=== PATIENT | male | born 1950 | race Caucasian/White ===

== ENCOUNTER 2018-03-16 15:52 | Emergency (ER) | payer MEDICARE ==
[~2018-03-16] VITALS: Ht 175.3 cm; Wt 113.4 kg
[~2018-03-16 15:52] MED LIST: ALBIPROI INH; ALBU90OI INH; AMLO10 PO; ASPI325 PO; ASPI81CH PO; Aspir 8181 MG PO; CARV25 PO; CHOL10002 PO; CLON.1 PO; Coreg PO; DICL25ER PO; DICL75ER PO; EZET10 PO; FURO20 PO; HYDACE5 PO; HYDCHL25 PO; INDO50 PO; Indomethacin50 MG PO; LISHYD2012 PO; LISI20 PO; MULTIVITAMIN PO; MULVITMIND PO; Micro-K10 MEQ PO; Nasonex17 GM; OMEP20ER PO; OMEPRAZOLE MAGN20 MG PO; OXYACE5T PO; PARO10 PO; PARO20 PO; PARO30 PO; PENVK250 PO; POTA10T PO; POTCHL10ER PO; PRAV40 PO; PROACE100 PO; Prednisone20 MG PO; RANI150 PO; SIMV10 PO; SIMV40 PO; Simvastatin20 MG PO; ZESTRIL40 MG PO; [UNRECOGNIZED DRUG - OTHER] PO
== END 2018-03-16 17:20 | disposition home or self-care (01) ==
LOC: ER 15:52
DX: S81.011A Laceration without foreign body, right knee, initial encounter (principal); I11.0 Hypertensive heart disease with heart failure; I50.9 Heart failure, unspecified; J44.9 Chronic obstructive pulmonary disease, unspecified; Z79.899 Other long term (current) drug therapy; Z79.82 Long term (current) use of aspirin; Z79.51 Long term (current) use of inhaled steroids; Z79.52 Long term (current) use of systemic steroids; W01.0XXA Fall on same level from slipping, tripping and stumbling without subsequent striking against object, initial encounter
CPT/HCPCS: 12032; 73560-RT; 99283-25

== ENCOUNTER → 2018-12-05 | Outpatient (CLI) | payer MEDICARE | LOC: LAB SHORT 11:34 → LAB 11:34 | DX: M71.161 Other infective bursitis, right knee (principal) | CPT/HCPCS: 87070; 87075; 87205 ==

== ENCOUNTER → 2018-12-08 | Outpatient (CLI) | payer MEDICARE | END | disposition home or self-care (01) | LOC: LAB 14:16 → LAB SHORT 14:16 | DX: M71.161 Other infective bursitis, right knee (principal) | CPT/HCPCS: 87070; 87075; 87205 ==

== ENCOUNTER → 2019-02-01 | Outpatient (CLI) | payer MEDICARE ==
[~2019-02-01] MED LIST changes: +Amlodipine Besy10 MG PO; +Flovent 220 Ora12 GM INH; +PAXIL40 MG PO; +Seroquel Xr50 MG PO
== END | disposition home or self-care (01) ==
LOC: LAB 14:22 → LAB SHORT 14:22
DX: Z51.89 Encounter for other specified aftercare (principal); M71.161 Other infective bursitis, right knee
CPT/HCPCS: 87070; 87075; 87205

== ENCOUNTER → 2019-03-12 | Outpatient (CLI) | payer MEDICARE, OTHER | END | disposition home or self-care (01) | LOC: LAB 09:50 → LAB SHORT 09:50 | DX: T81.33XA Disruption of traumatic injury wound repair, initial encounter (principal); T75.89XS Other specified effects of external causes, sequela | CPT/HCPCS: 87070; 87075; 87077; 87186; 87205 ==

== ENCOUNTER 2019-04-09 10:42 | Day surgery (SDC) | payer MEDICARE ==
[~2019-04-09] VITALS: Ht 175.3 cm; Wt 117.7 kg
== END 2019-04-09 13:27 | disposition home or self-care (01) ==
LOC: ORSCSDS 10:42
PROVIDERS: Orthopaedic Surgery
PROC: 0MBN0ZZ Excision of Right Knee Bursa and Ligament, Open Approach (ICD-10-PCS; principal; 2019-04-09 12:00)
PROC: 0MTN0ZZ Resection of Right Knee Bursa and Ligament, Open Approach (ICD-10-PCS; principal; 2019-04-09 12:00)
DX: M70.51 Other bursitis of knee, right knee (principal); I10 Essential (primary) hypertension; J44.9 Chronic obstructive pulmonary disease, unspecified; E11.9 Type 2 diabetes mellitus without complications; E66.01 Morbid (severe) obesity due to excess calories; Z68.38 Body mass index [BMI] 38.0-38.9, adult; Z79.899 Other long term (current) drug therapy; Z79.82 Long term (current) use of aspirin
CPT/HCPCS: 82947; 87071; 87075; 87205; J0171; J0690; J1100; J2250; J2405; J2704; J3010; J7120

== ENCOUNTER 2019-05-14 11:42 | Emergency (ER) | payer MEDICARE ==
[~2019-05-14] VITALS: Ht 175.3 cm; Wt 117.9 kg
[2019-05-14] MEDS ORDERED: CEPH500 PO (13:22)
== END 2019-05-14 13:50 | disposition home or self-care (01) ==
LOC: ER 11:42
DX: S30.851A Superficial foreign body of abdominal wall, initial encounter (principal); L03.311 Cellulitis of abdominal wall; J44.9 Chronic obstructive pulmonary disease, unspecified; I11.0 Hypertensive heart disease with heart failure; I50.9 Heart failure, unspecified; I25.2 Old myocardial infarction; Z79.899 Other long term (current) drug therapy; Z79.82 Long term (current) use of aspirin; W45.8XXA Other foreign body or object entering through skin, initial encounter
CPT/HCPCS: 76705; 90471; 90714; 99283-25

== ENCOUNTER 2019-05-24 07:51 | Day surgery (SDC) | payer MEDICARE ==
[~2019-05-24 07:51] MED LIST changes: +CEPH500 PO
== END 2019-05-24 22:41 | disposition home or self-care (01) ==
LOC: WOUND 07:51
DX: E11.622 Type 2 diabetes mellitus with other skin ulcer (principal); L97.815 Non-pressure chronic ulcer of other part of right lower leg with muscle involvement without evidence of necrosis; E78.5 Hyperlipidemia, unspecified; J44.9 Chronic obstructive pulmonary disease, unspecified; E11.22 Type 2 diabetes mellitus with diabetic chronic kidney disease; I13.0 Hypertensive heart and chronic kidney disease with heart failure and stage 1 through stage 4 chronic kidney disease, or unspecified chronic kidney disease; N18.9 Chronic kidney disease, unspecified; I50.9 Heart failure, unspecified; E66.9 Obesity, unspecified; I25.10 Atherosclerotic heart disease of native coronary artery without angina pectoris; Z95.5 Presence of coronary angioplasty implant and graft; Z68.38 Body mass index [BMI] 38.0-38.9, adult; Z79.899 Other long term (current) drug therapy; Z79.82 Long term (current) use of aspirin
CPT/HCPCS: G0463

== ENCOUNTER 2019-06-01 00:20 | Day surgery (SDC) | payer MEDICARE, OTHER | END 2019-06-01 22:41 | disposition home or self-care (01) | LOC: WOUND 00:20 | DX: S81.001A Unspecified open wound, right knee, initial encounter (principal); J44.9 Chronic obstructive pulmonary disease, unspecified; I13.0 Hypertensive heart and chronic kidney disease with heart failure and stage 1 through stage 4 chronic kidney disease, or unspecified chronic kidney disease; N18.9 Chronic kidney disease, unspecified; I50.9 Heart failure, unspecified; E78.5 Hyperlipidemia, unspecified; E66.9 Obesity, unspecified; I25.10 Atherosclerotic heart disease of native coronary artery without angina pectoris; Z95.5 Presence of coronary angioplasty implant and graft; Z68.38 Body mass index [BMI] 38.0-38.9, adult; Z79.899 Other long term (current) drug therapy; Z79.82 Long term (current) use of aspirin ==

== ENCOUNTER 2019-06-04 13:30 | Day surgery (SDC) | payer MEDICARE, OTHER | END 2019-06-04 22:49 | disposition home or self-care (01) | LOC: WOUND 13:30 | DX: S81.001D Unspecified open wound, right knee, subsequent encounter (principal); I25.10 Atherosclerotic heart disease of native coronary artery without angina pectoris; I13.0 Hypertensive heart and chronic kidney disease with heart failure and stage 1 through stage 4 chronic kidney disease, or unspecified chronic kidney disease; I50.9 Heart failure, unspecified; N18.9 Chronic kidney disease, unspecified; E78.5 Hyperlipidemia, unspecified; J44.9 Chronic obstructive pulmonary disease, unspecified; E66.9 Obesity, unspecified; Z95.5 Presence of coronary angioplasty implant and graft; Z68.38 Body mass index [BMI] 38.0-38.9, adult; Z79.82 Long term (current) use of aspirin; Z79.899 Other long term (current) drug therapy; Z96.651 Presence of right artificial knee joint ==

== ENCOUNTER 2019-06-07 16:17 | Day surgery (SDC) | payer MEDICARE | END 2019-06-07 23:10 | disposition home or self-care (01) | LOC: WOUND 16:17 | DX: L97.815 Non-pressure chronic ulcer of other part of right lower leg with muscle involvement without evidence of necrosis (principal); I13.0 Hypertensive heart and chronic kidney disease with heart failure and stage 1 through stage 4 chronic kidney disease, or unspecified chronic kidney disease; I50.9 Heart failure, unspecified; N18.9 Chronic kidney disease, unspecified; E78.5 Hyperlipidemia, unspecified; J44.9 Chronic obstructive pulmonary disease, unspecified; E66.9 Obesity, unspecified; I25.10 Atherosclerotic heart disease of native coronary artery without angina pectoris; Z95.5 Presence of coronary angioplasty implant and graft; Z68.38 Body mass index [BMI] 38.0-38.9, adult; Z79.82 Long term (current) use of aspirin; Z79.899 Other long term (current) drug therapy ==

== ENCOUNTER 2019-06-09 00:17 | Day surgery (SDC) | payer MEDICARE | END 2019-06-09 22:42 | disposition home or self-care (01) | LOC: WOUND 00:17 | DX: S81.001D Unspecified open wound, right knee, subsequent encounter (principal); I13.0 Hypertensive heart and chronic kidney disease with heart failure and stage 1 through stage 4 chronic kidney disease, or unspecified chronic kidney disease; N18.9 Chronic kidney disease, unspecified; I50.9 Heart failure, unspecified; J44.9 Chronic obstructive pulmonary disease, unspecified; E78.5 Hyperlipidemia, unspecified; I25.10 Atherosclerotic heart disease of native coronary artery without angina pectoris; Z95.5 Presence of coronary angioplasty implant and graft; Z98.890 Other specified postprocedural states ==

== ENCOUNTER 2019-06-16 09:35 | Day surgery (SDC) | payer MEDICARE, OTHER | END 2019-06-16 23:01 | disposition home or self-care (01) | LOC: WOUND 09:35 | DX: T81.89XA Other complications of procedures, not elsewhere classified, initial encounter (principal); I96 Gangrene, not elsewhere classified; I13.0 Hypertensive heart and chronic kidney disease with heart failure and stage 1 through stage 4 chronic kidney disease, or unspecified chronic kidney disease; N18.9 Chronic kidney disease, unspecified; I50.9 Heart failure, unspecified; I25.10 Atherosclerotic heart disease of native coronary artery without angina pectoris; E78.5 Hyperlipidemia, unspecified; J44.9 Chronic obstructive pulmonary disease, unspecified; E66.9 Obesity, unspecified; Z68.38 Body mass index [BMI] 38.0-38.9, adult; Z79.82 Long term (current) use of aspirin; Z79.1 Long term (current) use of non-steroidal anti-inflammatories (NSAID); Z79.51 Long term (current) use of inhaled steroids; Z79.899 Other long term (current) drug therapy; Z96.652 Presence of left artificial knee joint; Z95.5 Presence of coronary angioplasty implant and graft; Y83.8 Other surgical procedures as the cause of abnormal reaction of the patient, or of later complication, without mention of misadventure at the time of the procedure | CPT/HCPCS: Q4196 ==

== ENCOUNTER 2019-06-23 09:50 | Day surgery (SDC) | payer MEDICARE, OTHER | END 2019-06-23 23:49 | disposition home or self-care (01) | LOC: WOUND 09:50 | DX: L97.815 Non-pressure chronic ulcer of other part of right lower leg with muscle involvement without evidence of necrosis (principal); I13.0 Hypertensive heart and chronic kidney disease with heart failure and stage 1 through stage 4 chronic kidney disease, or unspecified chronic kidney disease; I50.9 Heart failure, unspecified; N18.9 Chronic kidney disease, unspecified; J44.9 Chronic obstructive pulmonary disease, unspecified; E78.5 Hyperlipidemia, unspecified; I25.10 Atherosclerotic heart disease of native coronary artery without angina pectoris; E66.9 Obesity, unspecified; Z95.5 Presence of coronary angioplasty implant and graft; Z68.38 Body mass index [BMI] 38.0-38.9, adult; Z79.82 Long term (current) use of aspirin; Z79.899 Other long term (current) drug therapy | CPT/HCPCS: Q4196 ==

== ENCOUNTER 2019-06-30 09:45 | Day surgery (SDC) | payer MEDICARE, OTHER | END 2019-06-30 22:47 | disposition home or self-care (01) | LOC: WOUND 09:45 | DX: T81.89XA Other complications of procedures, not elsewhere classified, initial encounter (principal); I96 Gangrene, not elsewhere classified; I13.0 Hypertensive heart and chronic kidney disease with heart failure and stage 1 through stage 4 chronic kidney disease, or unspecified chronic kidney disease; N18.9 Chronic kidney disease, unspecified; I50.9 Heart failure, unspecified; I25.10 Atherosclerotic heart disease of native coronary artery without angina pectoris; J44.9 Chronic obstructive pulmonary disease, unspecified; E78.5 Hyperlipidemia, unspecified; E66.9 Obesity, unspecified; Z68.38 Body mass index [BMI] 38.0-38.9, adult; Z79.51 Long term (current) use of inhaled steroids; Z79.82 Long term (current) use of aspirin; Z79.899 Other long term (current) drug therapy; Z95.5 Presence of coronary angioplasty implant and graft; Y83.1 Surgical operation with implant of artificial internal device as the cause of abnormal reaction of the patient, or of later complication, without mention of misadventure at the time of the procedure | CPT/HCPCS: G0463; Q4196 ==

== ENCOUNTER 2019-07-06 10:15 | Day surgery (SDC) | payer MEDICARE, OTHER | END 2019-07-06 22:47 | disposition home or self-care (01) | LOC: WOUND 10:15 | DX: T81.89XA Other complications of procedures, not elsewhere classified, initial encounter (principal); L97.812 Non-pressure chronic ulcer of other part of right lower leg with fat layer exposed; I13.0 Hypertensive heart and chronic kidney disease with heart failure and stage 1 through stage 4 chronic kidney disease, or unspecified chronic kidney disease; I50.9 Heart failure, unspecified; N18.9 Chronic kidney disease, unspecified; E78.5 Hyperlipidemia, unspecified; J44.9 Chronic obstructive pulmonary disease, unspecified; E66.9 Obesity, unspecified; I25.10 Atherosclerotic heart disease of native coronary artery without angina pectoris; Z95.5 Presence of coronary angioplasty implant and graft; Z68.38 Body mass index [BMI] 38.0-38.9, adult | CPT/HCPCS: Q4196 ==

== ENCOUNTER 2019-07-13 13:58 | Day surgery (SDC) | payer MEDICARE, OTHER | END 2019-07-13 22:33 | disposition home or self-care (01) | LOC: WOUND 13:58 | DX: T81.89XA Other complications of procedures, not elsewhere classified, initial encounter (principal); I96 Gangrene, not elsewhere classified; I13.0 Hypertensive heart and chronic kidney disease with heart failure and stage 1 through stage 4 chronic kidney disease, or unspecified chronic kidney disease; N18.9 Chronic kidney disease, unspecified; I50.9 Heart failure, unspecified; I25.10 Atherosclerotic heart disease of native coronary artery without angina pectoris; E78.5 Hyperlipidemia, unspecified; J32.9 Chronic sinusitis, unspecified; J44.9 Chronic obstructive pulmonary disease, unspecified; E66.9 Obesity, unspecified; Z68.38 Body mass index [BMI] 38.0-38.9, adult; Z95.5 Presence of coronary angioplasty implant and graft; Z96.652 Presence of left artificial knee joint; Y83.8 Other surgical procedures as the cause of abnormal reaction of the patient, or of later complication, without mention of misadventure at the time of the procedure | CPT/HCPCS: Q4196 ==

== ENCOUNTER 2019-07-21 09:43 | Day surgery (SDC) | payer MEDICARE, OTHER | END 2019-07-21 22:47 | disposition home or self-care (01) | LOC: WOUND 09:43 | DX: T81.89XA Other complications of procedures, not elsewhere classified, initial encounter (principal); L97.813 Non-pressure chronic ulcer of other part of right lower leg with necrosis of muscle; I25.10 Atherosclerotic heart disease of native coronary artery without angina pectoris; I13.0 Hypertensive heart and chronic kidney disease with heart failure and stage 1 through stage 4 chronic kidney disease, or unspecified chronic kidney disease; N18.9 Chronic kidney disease, unspecified; I50.9 Heart failure, unspecified; J44.9 Chronic obstructive pulmonary disease, unspecified; E78.5 Hyperlipidemia, unspecified; J32.9 Chronic sinusitis, unspecified; E66.9 Obesity, unspecified; Z68.38 Body mass index [BMI] 38.0-38.9, adult; Z95.5 Presence of coronary angioplasty implant and graft; Z96.652 Presence of left artificial knee joint; Z79.82 Long term (current) use of aspirin; Z79.51 Long term (current) use of inhaled steroids; Z79.899 Other long term (current) drug therapy; Y83.8 Other surgical procedures as the cause of abnormal reaction of the patient, or of later complication, without mention of misadventure at the time of the procedure | CPT/HCPCS: Q4196 ==

== ENCOUNTER 2019-07-28 00:32 | Day surgery (SDC) | payer MEDICARE, OTHER | END 2019-07-28 22:46 | disposition home or self-care (01) | LOC: WOUND 00:32 | DX: L97.815 Non-pressure chronic ulcer of other part of right lower leg with muscle involvement without evidence of necrosis (principal); I13.0 Hypertensive heart and chronic kidney disease with heart failure and stage 1 through stage 4 chronic kidney disease, or unspecified chronic kidney disease; I50.9 Heart failure, unspecified; J44.9 Chronic obstructive pulmonary disease, unspecified; E66.9 Obesity, unspecified; N18.9 Chronic kidney disease, unspecified; E78.5 Hyperlipidemia, unspecified; I25.10 Atherosclerotic heart disease of native coronary artery without angina pectoris; Z95.5 Presence of coronary angioplasty implant and graft; Z68.38 Body mass index [BMI] 38.0-38.9, adult; Z79.82 Long term (current) use of aspirin; Z79.899 Other long term (current) drug therapy | CPT/HCPCS: G0463 ==

== ENCOUNTER 2019-08-04 00:26 | Day surgery (SDC) | payer MEDICARE, OTHER | END 2019-08-04 22:33 | disposition home or self-care (01) | LOC: WOUND 00:26 | DX: L97.815 Non-pressure chronic ulcer of other part of right lower leg with muscle involvement without evidence of necrosis (principal); I13.0 Hypertensive heart and chronic kidney disease with heart failure and stage 1 through stage 4 chronic kidney disease, or unspecified chronic kidney disease; I50.9 Heart failure, unspecified; N18.9 Chronic kidney disease, unspecified; E78.5 Hyperlipidemia, unspecified; E66.9 Obesity, unspecified; I25.10 Atherosclerotic heart disease of native coronary artery without angina pectoris; J44.9 Chronic obstructive pulmonary disease, unspecified; Z95.5 Presence of coronary angioplasty implant and graft; Z68.38 Body mass index [BMI] 38.0-38.9, adult; Z79.82 Long term (current) use of aspirin; Z79.899 Other long term (current) drug therapy ==

== ENCOUNTER 2019-08-11 00:15 | Day surgery (SDC) | payer MEDICARE, OTHER | END 2019-08-11 22:54 | disposition home or self-care (01) | LOC: WOUND 00:15 | DX: L97.815 Non-pressure chronic ulcer of other part of right lower leg with muscle involvement without evidence of necrosis (principal); I13.0 Hypertensive heart and chronic kidney disease with heart failure and stage 1 through stage 4 chronic kidney disease, or unspecified chronic kidney disease; N18.9 Chronic kidney disease, unspecified; I50.9 Heart failure, unspecified; J44.9 Chronic obstructive pulmonary disease, unspecified; E78.5 Hyperlipidemia, unspecified; I25.10 Atherosclerotic heart disease of native coronary artery without angina pectoris; Z95.5 Presence of coronary angioplasty implant and graft; Z68.38 Body mass index [BMI] 38.0-38.9, adult; Z79.899 Other long term (current) drug therapy; Z79.82 Long term (current) use of aspirin ==

== ENCOUNTER 2019-08-18 00:14 | Day surgery (SDC) | payer MEDICARE, OTHER | END 2019-08-18 23:07 | disposition home or self-care (01) | LOC: WOUND 00:14 | DX: L97.815 Non-pressure chronic ulcer of other part of right lower leg with muscle involvement without evidence of necrosis (principal); I13.0 Hypertensive heart and chronic kidney disease with heart failure and stage 1 through stage 4 chronic kidney disease, or unspecified chronic kidney disease; I50.9 Heart failure, unspecified; N18.9 Chronic kidney disease, unspecified; E78.5 Hyperlipidemia, unspecified; J44.9 Chronic obstructive pulmonary disease, unspecified; E66.9 Obesity, unspecified; I25.10 Atherosclerotic heart disease of native coronary artery without angina pectoris; Z95.5 Presence of coronary angioplasty implant and graft; Z68.38 Body mass index [BMI] 38.0-38.9, adult; Z79.899 Other long term (current) drug therapy; Z79.82 Long term (current) use of aspirin | CPT/HCPCS: G0463 ==

== ENCOUNTER 2019-08-25 00:15 | Day surgery (SDC) | payer MEDICARE, OTHER | END 2019-08-25 22:55 | disposition home or self-care (01) | LOC: WOUND 00:15 | DX: L97.815 Non-pressure chronic ulcer of other part of right lower leg with muscle involvement without evidence of necrosis (principal); I13.0 Hypertensive heart and chronic kidney disease with heart failure and stage 1 through stage 4 chronic kidney disease, or unspecified chronic kidney disease; N18.9 Chronic kidney disease, unspecified; I50.9 Heart failure, unspecified; J44.9 Chronic obstructive pulmonary disease, unspecified; E78.5 Hyperlipidemia, unspecified; I25.10 Atherosclerotic heart disease of native coronary artery without angina pectoris; Z95.5 Presence of coronary angioplasty implant and graft; Z79.899 Other long term (current) drug therapy; Z79.82 Long term (current) use of aspirin | CPT/HCPCS: G0463 ==

== ENCOUNTER → 2020-06-14 | Outpatient (CLI) | payer MEDICARE ==
[2020-06-14 10:13] LABS: Anion Gap 6 mmol/L (6-16); Blood Urea Nitrogen 14 mg/dL (8-24); Bun/Creatinine Ratio 16.8 (12.0-20.0); CO2, Blood 27 mmol/L (21-32); Calcium, Blood 8.9 mg/dL (8.5-10.1); Chloride, Blood 106 mmol/L (98-108); Creatinine, Blood 0.83 mg/dL (0.60-1.20); Glomerular Filtration Rate >60 (60-); Glucose, Blood 121 mg/dL (70-99); Potassium, Blood 3.7 mmol/L (3.5-5.5); Sodium, Blood 139 mmol/L (136-145)
== END | disposition home or self-care (01) ==
LOC: LAB SHORT 09:44 → PLD 09:44
PROVIDERS: Physician Assistant
DX: I71.2 Thoracic aortic aneurysm, without rupture (principal)
CPT/HCPCS: 80048

== ENCOUNTER → 2020-06-27 | Outpatient (CLI) | payer MEDICARE, SELFPAY | END | disposition home or self-care (01) | LOC: PLD 11:47 → LAB SHORT 11:47 | DX: D23.61 Other benign neoplasm of skin of right upper limb, including shoulder (principal); L72.9 Follicular cyst of the skin and subcutaneous tissue, unspecified | CPT/HCPCS: 88305 ==

== ENCOUNTER → 2021-02-14 | Outpatient (CLI) | payer MEDICARE | LOC: LAB SHORT 12:38 → LAB 12:38 | DX: D48.5 Neoplasm of uncertain behavior of skin (principal); D23.39 Other benign neoplasm of skin of other parts of face; L57.0 Actinic keratosis | CPT/HCPCS: 88305 ==

== ENCOUNTER → 2021-08-27 | Outpatient (CLI) | payer OTHER, MEDICARE | END | disposition home or self-care (01) | LOC: LAB SHORT 12:12 → LAB 12:12 | DX: D36.14 Benign neoplasm of peripheral nerves and autonomic nervous system of thorax (principal); L28.1 Prurigo nodularis | CPT/HCPCS: 88305; 88312 ==

== ENCOUNTER → 2022-02-19 | Outpatient (CLI) | payer OTHER | END | disposition home or self-care (01) | LOC: PLD 11:27 | DX: D48.5 Neoplasm of uncertain behavior of skin (principal) ==

== ENCOUNTER → 2023-05-05 | Outpatient (CLI) | payer OTHER | END | disposition home or self-care (01) | LOC: LAB SHORT 09:47 → PLD 09:47 | DX: D48.5 Neoplasm of uncertain behavior of skin (principal) | CPT/HCPCS: 88305 ==

== ENCOUNTER → 2024-01-28 | Outpatient (CLI) | payer OTHER ==
[~2024-01-28] MED LIST changes: +TRELEGY ELLIPT1 EAC1
[2024-01-28 16:34] LABS: BASOPHILS ABSOLUTE AUTO 0.06 K/mm3 (0.00-0.23); BASOPHILS PERCENT AUTO 1 % (0-2); EOSINOPHILS ABSOLUTE AUTO 0.27 K/mm3 (0.00-0.68); EOSINOPHILS PERCENT AUTO 5 % (0-6); Hematocrit 42.5 % (37.0-53.0); Hemoglobin 14.7 g/dL (13.5-17.5); IMMATURE GRAN ABSOLUTE AUTO 0.01 K/mm3 (0.00-0.10); IMMATURE GRAN PERCENT AUTO 0 % (0-1); LYMPHOCYTES ABSOLUTE AUTO 1.79 K/mm3 (0.84-5.20); LYMPHOCYTES PERCENT AUTO 30 % (21-46); MONOCYTES ABSOLUTE AUTO 0.36 K/mm3 (0.16-1.47); MONOCYTES PERCENT AUTO 6 % (4-13); Mean Corpuscular HGB 30.4 pg (26.0-34.0); Mean Corpuscular HGB Conc 34.6 g/dL (31.5-36.5); Mean Corpuscular Volume 88 fL (80-100); NEUTROPHILS ABSOLUTE AUTO 3.41 K/mm3 (1.96-9.15); NEUTROPHILS PERCENT AUTO 58 % (41-73); Platelet Count 213 K/mm3 (150-400); RDW Coefficient Variation 12.9 % (11.7-14.2); RDW Standard Deviation 41.9 fL (35.1-46.3); Red Blood Cell Count 4.83 M/mm3 (4.30-5.90)
[2024-01-28 17:00] LABS: Alanine Aminotransfer (ALT/SGP 29 U/L (12-78); Albumin, Blood 4.2 g/dL (3.4-5.0); Albumin/Globulin Ratio 1.2 (0.8-1.8); Alk Phos 98 U/L (50-136); Anion Gap 8 mmol/L (3-11); Aspartate Aminotrans (AST/SGOT 17 U/L (12-37); Bilirubin, Total 0.6 mg/dL (0.1-1.0); Blood Urea Nitrogen 16 mg/dL (8-24); CHOL/HDL RATIO 4.2; CO2, Blood 28 mmol/L (21-32); Calcium, Blood 9.1 mg/dL (8.5-10.1); Chloride, Blood 107 mmol/L (98-108); Cholesterol 140 mg/dL (50-200); Globulin, Blood 3.5 g/dL (2.2-4.0); Glucose, Blood 127 mg/dL (70-99); HDL Cholesterol 33 mg/dL (>39); LDL/HDL RATIO 2.6; Low Density Lipoprotein Chol 86 mg/dL (0-110); Sodium, Blood 139 mmol/L (136-145); Total Protein, Blood 7.7 g/dL (6.4-8.2); Triglycerides 107 mg/dL (30-160); Very Low Density Lipoprot Chol 21 mg/dL (6-32)
[2024-01-28 17:07] LABS: Bun/Creatinine Ratio 18.5 (12.0-20.0); Creatinine, Blood 0.86 mg/dL (0.60-1.20); Glomerular Filtration Rate 93 (60-); Thyroid Stimulating Hormone 0.936 uIU/mL (0.360-4.800)
== END ==
LOC: LAB SHORT 10:15 → LAB 10:15
PROVIDERS: Physician Assistant
DX: Z12.5 Encounter for screening for malignant neoplasm of prostate (principal); R06.09 Other forms of dyspnea; Z79.899 Other long term (current) drug therapy
CPT/HCPCS: 80053; 80061; 82306; 83036; 83880; 84443; 85025; G0103

== ENCOUNTER 2024-04-09 11:03 | Day surgery (SDC) | payer OTHER ==
[~2024-04-09] VITALS: Ht 175.3 cm; Wt 126.3 kg
[2024-04-09] MEDS ORDERED: Lactated Ringer's 1,000 ML IV ONE (12:07)
[2024-04-09] MEDS ORDERED: propofoL 50 ML IV ONE ×2 (12:10→12:42)
[2024-04-09 13:37] VITALS: BP 95/65
== END 2024-04-09 13:37 | disposition home or self-care (01) ==
LOC: ORSCSDS 11:03
PROVIDERS: Internal Medicine Gastroenterology
PROC: 0DBE8ZX Excision of Large Intestine, Via Natural or Artificial Opening Endoscopic, Diagnostic (ICD-10-PCS; principal; 2024-04-09 12:30)
PROC: 0DBK8ZX Excision of Ascending Colon, Via Natural or Artificial Opening Endoscopic, Diagnostic (ICD-10-PCS; principal; 2024-04-09 12:30)
DX: Z86.010 Personal history of colon polyps (principal); Z80.0 Family history of malignant neoplasm of digestive organs; I71.40 Abdominal aortic aneurysm, without rupture, unspecified; Z79.82 Long term (current) use of aspirin; Z79.899 Other long term (current) drug therapy
CPT/HCPCS: 88305; J2704

== ENCOUNTER 2024-07-13 10:08 | Emergency (ER) | payer OTHER ==
[~2024-07-13] VITALS: Ht 175.3 cm; Wt 122.5 kg
[2024-07-13 11:19] VITALS: BP 124/87
[2024-07-13] MEDS ORDERED: Ketorolac Tromethamine 30mg Vial IM ONE (11:20)
== END 2024-07-13 14:24 | disposition home or self-care (01) ==
LOC: ER 10:08
DX: M17.11 Unilateral primary osteoarthritis, right knee (principal); J44.9 Chronic obstructive pulmonary disease, unspecified; I11.0 Hypertensive heart disease with heart failure; I50.9 Heart failure, unspecified; I25.2 Old myocardial infarction; Z79.51 Long term (current) use of inhaled steroids; Z79.82 Long term (current) use of aspirin; Z79.899 Other long term (current) drug therapy
CPT/HCPCS: 73562-RT; 93971; 96372; 99284-25; J1885